=== PATIENT | male | born 1940 | race Caucasian/White ===

== ENCOUNTER 2018-03-11 13:10 | Outpatient (CLI) | payer OTHER | END 2018-03-11 13:19 | disposition home or self-care (01) | LOC: LAB 13:10 | DX: R97.20 Elevated prostate specific antigen [PSA] (principal) ==

== ENCOUNTER 2018-04-04 07:21 | Outpatient (CLI) | payer OTHER | END 2018-04-04 07:25 | disposition home or self-care (01) | LOC: SONOGRAMA 07:21 | DX: R97.20 Elevated prostate specific antigen [PSA] (principal) ==